=== PATIENT | male | born 1940 | race Caucasian/White ===

== ENCOUNTER 2018-11-02 10:23 | Inpatient (IN) ==
[2018-11-02] MEDS ORDERED: SODIUM CHLORIDE 0.9% 500 ML IV STA (12:34)
[2018-11-02 13:14] LABS: Basophils # 0.1 10*3/uL (0.0-0.2); Basophils % 0.7 % (0.0-0.8); Eosinophils # 0.1 10*3/uL (0.0-0.87); Eosinophils % 0.8 % (0.00-10.9); Hematocrit 38.7 VOL% (42.0-52.0); Hemoglobin 12.6 GM/DL (14.0-18.0); Immature Granulocytes % 0.2 %; Immature Granulocytes Absolute 0.03 #; Lymphocytes # 9.6 10*3/uL (1.4-4.0); Lymphocytes % 65.2 % (21.2-54.2); Mean Corpuscular HGB Conc 32.6 GM/DL (32-36); Mean Corpuscular Volume 102.4 FL (87-102); Mean Platelet Volume 11.6 FL (9.6-12.0); Monocytes % 9.8 % (1.7-12.7); Neutrophils % 23.3 % (38.7-73.9); Platelet Count 193 T/CUMM (130-400); Red Blood Count 3.78 MC/CUMM (3.8-5.5); White Blood Count 14.8 T/CUMM (4-12)
[2018-11-02 13:27] LABS: Alanine Aminotransferase < 9 U/L (16-61); Albumin 3.7 G/DL (3.4-5.0); Alkaline Phosphatase 76 U/L (45-117); Aspartate Amino Transferase 9 U/L (0-37); Blood Urea Nitrogen 20 MG/DL (7-18); Calcium 9.1 MG/DL (8.5-10.1); Glucose 107 MG/DL (74-106); Total Protein 6.4 G/DL (6.4-8.3)
[2018-11-02] MEDS ORDERED: ONDANSETRON 4 MG/2 ML VIAL IV PRN (14:32)
[2018-11-02] MEDS ORDERED: ACETAMINOPHEN 325 MG TABLET PO PRN (14:32)
[2018-11-02 14:45] LABS: Eosinophils 1 % (0-10); Lymphocytes 30 % (20-55); Segmented Neutrophils 45 % (50-85); Total Cells Counted 100
[2018-11-02 14:49] LABS: Ovalocytes Few; Platelet Estimate Adequate; Schistocytes Few
[2018-11-02] MEDS: SODIUM CHLORIDE 0.9% 1,000 ML IV SCH (17:47)
[2018-11-02 19:29] LABS: Apearance,Urine CLEAR (Clear); Bacteria,Urine Occasional /HPF (Few); Bilirubin,Urine Negative (Negative); Blood, Urine Negative (Negative); Glucose,Urine (UA) Negative (Negative); Hyaline Casts,Urine 3 /LPF (0-3); Ketones,Urine 5 mg/dL (Negative); Mucus,Urine Occasional /LPF (Occasional); Nitrite,Urine Negative (Negative); Protein,Urine Negative; RBC,Urine 1 /HPF (0-4); Squamous Epithelial Cell,Urine Occasional /HPF (0-10); Urine Color Yellow (Yellow); Urine Specific Gravity 1.015 (1.001-1.035); Urine Urobilinogen < 2.0 EU/DL (0.2-1.0); WBC,Urine 2 /HPF (0-6)
[2018-11-02] MEDS ORDERED: ZALEPLON 5 MG CAPSULE PO ONE (20:55)
[2018-11-02] MEDS ORDERED: ASPIRIN EC 81 MG TABLET PO ONE (21:00)
[2018-11-02] MEDS ORDERED: ROSUVASTATIN 10 MG TABLET PO ONE (21:00)
[2018-11-02] MEDS ORDERED: DICLOFENAC SODIUM 50 MG TABLET PO ONE (21:00)
[2018-11-02] MEDS ORDERED: CARBIDOPA/LEVODOPA 25-100 MG TABLET PO ONE (21:00)
[2018-11-02] MEDS: DOCUSATE SODIUM 100 MG CAPSULE PO SCH (22:02)
[2018-11-03] MEDS: SODIUM CHLORIDE 0.9% 1,000 ML IV SCH ×3 (00:47→16:33)
[2018-11-03 04:54] LABS: Basophils # 0.1 10*3/uL (0.0-0.2); Basophils % 0.6 % (0.0-0.8); Eosinophils # 0.2 10*3/uL (0.0-0.87); Eosinophils % 1.3 % (0.00-10.9); Immature Granulocytes % 0.2 %; Immature Granulocytes Absolute 0.02 #; Lymphocytes # 8.9 10*3/uL (1.4-4.0); Lymphocytes % 75.5 % (21.2-54.2); Mean Corpuscular HGB Conc 32.4 GM/DL (32-36); Mean Corpuscular Volume 101.2 FL (87-102); Monocytes % 8.3 % (1.7-12.7); Neutrophils % 14.1 % (38.7-73.9); Platelet Count 169 T/CUMM (130-400); Red Blood Count 3.36 MC/CUMM (3.8-5.5); Red Cell Distribution Width 14.1 % (9.3-17.3); White Blood Count 11.8 T/CUMM (4-12)
[2018-11-03 05:29] LABS: Eosinophils 2 % (0-10); Lymphocytes 75 % (20-55); Segmented Neutrophils 18 % (50-85); Total Cells Counted 100
[2018-11-03 05:30] LABS: Anisocytosis 1+; Platelet Estimate Adequate
[2018-11-03] MEDS: PANTOPRAZOLE 40 MG TABLET PO SCH (08:30)
[2018-11-03] MEDS: DOCUSATE SODIUM 100 MG CAPSULE PO SCH ×2 (08:30→20:30)
[2018-11-03] MEDS ORDERED: POTASSIUM CHLORIDE 20 MEQ TABLET PO ONE (16:00)
[2018-11-03] MEDS ORDERED: ASPIRIN EC 81 MG TABLET PO SCH (17:00)
[2018-11-03] MEDS: CARBIDOPA/LEVODOPA 25-100 MG TABLET PO SCH (20:30)
[2018-11-04] MEDS: SODIUM CHLORIDE 0.9% 1,000 ML IV SCH ×2 (00:32→08:55)
[2018-11-04 04:53] LABS: Basophils # 0.1 10*3/uL (0.0-0.2); Basophils % 0.5 % (0.0-0.8); Eosinophils # 0.2 10*3/uL (0.0-0.87); Eosinophils % 1.5 % (0.00-10.9); Hematocrit 36.5 VOL% (42.0-52.0); Hemoglobin 11.8 GM/DL (14.0-18.0); Immature Granulocytes % 0.2 %; Immature Granulocytes Absolute 0.02 #; Lymphocytes # 7.6 10*3/uL (1.4-4.0); Lymphocytes % 70.6 % (21.2-54.2); Mean Corpuscular HGB Conc 32.3 GM/DL (32-36); Mean Platelet Volume 11.3 FL (9.6-12.0); Neutrophils % 19.2 % (38.7-73.9); Platelet Count 166 T/CUMM (130-400); Red Blood Count 3.58 MC/CUMM (3.8-5.5); Red Cell Distribution Width 13.9 % (9.3-17.3); White Blood Count 10.8 T/CUMM (4-12)
[2018-11-04 05:24] LABS: Band Neutrophils 2 % (0-10); Eosinophils 4 % (0-10); Lymphocytes 61 % (20-55); Segmented Neutrophils 25 % (50-85); Total Cells Counted 100
[2018-11-04 05:25] LABS: Anisocytosis 1+; Ovalocytes 1+; Platelet Estimate Adequate
[2018-11-04 05:30] LABS: Albumin 3.4 G/DL (3.4-5.0); Bilirubin,Total 1.2 MG/DL (0.2-1.0); Calcium 8.7 MG/DL (8.5-10.1); Osmolality,Calculated 288.7 MOS/KG (273-304); Total Protein 6.3 G/DL (6.4-8.3)
[2018-11-04 08:01] VITALS: BP 178/96
[2018-11-04] MEDS: DOCUSATE SODIUM 100 MG CAPSULE PO SCH (08:55)
[2018-11-04] MEDS: PANTOPRAZOLE 40 MG TABLET PO SCH (08:56)
[2018-11-04] MEDS: CARBIDOPA/LEVODOPA 25-100 MG TABLET PO SCH (08:56)
[2018-11-05] MEDS ORDERED: ROSUVASTATIN 10 MG TABLET PO SCH (09:00)
== END 2018-11-04 10:35 | disposition home or self-care (01) | DRG 57 ==
LOC: N.ED 10:23 → N.EDINP 14:31 → N.2E 16:09
PROVIDERS: ADMIT Family Medicine; ATTEND Family Medicine